=== PATIENT | female | born 1955 | race African-American/Black ===

== ENCOUNTER 2022-05-25 04:01 | Day surgery (SDC) | payer OTHER, BC ==
[2022-05-24 08:49] VITALS: BMI 31.8
[2022-05-25 06:28] VITALS: RESP 18
[2022-05-25] MEDS ORDERED: LIDOCAINE HCL 1%, 10 MG/ML (20ML VIAL) ONE (07:19)
[2022-05-25] MEDS ORDERED: LIDOCAINE HCL/PF 2% SDV 5ML VIAL ONE (07:22)
[2022-05-25] MEDS ORDERED: DEXAMETHASONE SOD PHOSPHATE 4 MG/1 ML VIAL ONE (07:22)
[2022-05-25] MEDS ORDERED: MIDAZOLAM HCL 2 MG/2 ML SINGLE DOSE VIAL ONE (07:23)
[2022-05-25] MEDS ORDERED: PROPOFOL 20 ML ONE (07:23)
[2022-05-25] MEDS ORDERED: ROCURONIUM BROMIDE 50 MG/5 ML SYRINGE ONE (07:23)
[2022-05-25] MEDS ORDERED: SUCCINYLCHOLINE CHLORIDE 200 MG/10 ML SYRINGE ONE (07:23)
[2022-05-25] MEDS ORDERED: LIDOCAINE HCL 1%, 10 MG/ML (20ML VIAL) NR ONE (07:25)
[2022-05-25] MEDS ORDERED: ceFAZolin SODIUM 1 GM VIAL IVPB ONE ×3 (07:25→08:30)
[2022-05-25] MEDS ORDERED: SEVOFLURANE 250 ML BTL ONE ×2 (07:42→07:45)
[2022-05-25] MEDS ORDERED: DESFLURANE GAS 240 ML BOTTLE IH ONE (07:42)
[2022-05-25] MEDS ORDERED: LIDOCAINE 1%/EPI 1:100000 (20 ML MULTI DOSE VIAL) IJ ONE ×2 (08:11→08:35)
[2022-05-25] MEDS ORDERED: BUPIVACAINE HCL/PF 0.5% (5MG/ML) 10 ML VIAL IJ ONE ×2 (08:13→08:35)
[2022-05-25] MEDS ORDERED: ceFAZolin SODIUM 1 GM VIAL ONE (08:25)
[2022-05-25] MEDS ORDERED: NEOSTIGMINE METHYLSULFATE 0.5 MG/ML - 10 ML MDV ONE (09:00)
[2022-05-25] MEDS ORDERED: GLYCOPYRROLATE 0.2 MG/1 ML VIAL ONE (09:00)
[2022-05-25] MEDS ORDERED: oxyCODONE HCL 5 MG TABLET PO PRN ×2 (10:19)
[2022-05-25] MEDS ORDERED: ONDANSETRON 4 MG/2 ML VIAL IVPUSH PRN (10:19)
[2022-05-25] MEDS ORDERED: LACTATED RINGERS SOLUTION 1,000 ML IV SCH (10:30)
[2022-05-25 10:51] VITALS: BP 131/68; PULSE 64; TEMP 98.2
== END 2022-05-25 11:37 | disposition home or self-care (01) ==
LOC: JASU-SURG 04:01
PROVIDERS: ATTEND Surgery
PROC: 0JB70ZZ Excision of Back Subcutaneous Tissue and Fascia, Open Approach (ICD-10-PCS; principal; 2022-05-25 08:00)
DX: D17.1 Benign lipomatous neoplasm of skin and subcutaneous tissue of trunk (principal)
CPT/HCPCS: 88304-TC; 94760